=== PATIENT | female | born 1940 | race Caucasian/White ===

== ENCOUNTER 2019-03-29 10:02 | Emergency (ER) | payer MEDICARE, MEDICAID ==
[~2019-03-29] VITALS: Ht 157.5 cm; Wt 66.4 kg
[2019-03-29 10:03] VITALS: Ht 157.5 cm; Wt 66.4 kg
[2019-03-29] MEDS ORDERED: RANITIDINE HCL150 M1 PO (10:07)
[2019-03-29] MEDS ORDERED: ULTRAM50 MG PO (10:08)
[2019-03-29] MEDS ORDERED: ASPIRIN81 MG PO (10:08)
[2019-03-29] MEDS ORDERED: ELAVIL25 MG PO (10:08)
[2019-03-29] MEDS ORDERED: ZOCOR40 MG PO (10:09)
[2019-03-29] MEDS ORDERED: KEFLEX250 MG PO (10:09)
[2019-03-29] MEDS ORDERED: LISINOPRIL10 MG PO (10:09)
[2019-03-29] MEDS ORDERED: LYRICA75 MG PO (10:10)
[2019-03-29 11:26] LABS: BASOPHILS 0.2 % (0-2); EOSINOPHILS 0 % (0-7); HEMOGLOBIN 12.6 g/dL (12-16); IMMATURE GRANULOCYTES 0.2 % (0-5); LYMPHOCYTES 9.5 % (15-50); MCH 28.6 pg (26.0-34.0); MCHC 33.2 g/dL (31.0-37.0); MCV 86.4 fL (80.0-100.0); MEAN PLATELET VOLUME 10.9 fL (7.4-10.4); MONOCYTES 8.7 % (2-11); NEUTROPHILS 81.4 % (40-80); PLATELET COUNT 185 10x3/uL (130-400); RDW 13.3 % (11.5-14.5); WBC 5.3 10x3/uL (4.8-10.8)
[2019-03-29 11:51] LABS: ALBUMIN 3.7 g/dL (3.4-5.0); ANION GAP 11.3 mmol/L (8-16); BILIRUBIN - TOTAL 0.36 mg/dL (0.2-1.3); CALCIUM 9.2 mg/dL (8.5-10.1); CARBON DIOXIDE 29.7 mmol/L (21.0-32.0); CREATININE - SERUM 1.1 mg/dL (0.6-1.3); PROTEIN - SERUM 7.5 g/dL (6.4-8.2)
[2019-03-29] MEDS ORDERED: ROBAXIN500 MG PO (12:26)
[2019-03-29 12:50] VITALS: BP 105/62
== END 2019-03-29 12:50 | disposition home or self-care (01) ==
LOC: D.ER 10:02
PROVIDERS: Family Medicine
DX: S20.211A Contusion of right front wall of thorax, initial encounter (principal); W18.09XA Striking against other object with subsequent fall, initial encounter; Y93.89 Activity, other specified; Y92.019 Unspecified place in single-family (private) house as the place of occurrence of the external cause; S29.012A Strain of muscle and tendon of back wall of thorax, initial encounter

== ENCOUNTER 2019-04-07 16:19 | Emergency (ER) | payer MEDICARE, MEDICAID ==
[~2019-04-07] VITALS: Ht 157.5 cm; Wt 63.6 kg
[~2019-04-07 16:19] MED LIST: ASPIRIN81 MG PO; ELAVIL25 MG PO; KEFLEX250 MG PO; LISINOPRIL10 MG PO; LYRICA75 MG PO; RANITIDINE HCL150 M1 PO; ROBAXIN500 MG PO; ULTRAM50 MG PO; ZOCOR40 MG PO
[2019-04-07 16:28] VITALS: Ht 157.5 cm; Wt 63.6 kg
[2019-04-07 17:18] LABS: BASOPHILS 0.2 % (0-2); EOSINOPHILS 0.2 % (0-7); HEMATOCRIT 39.5 % (36.0-48.0); HEMOGLOBIN 12.8 g/dL (12-16); IMMATURE GRANULOCYTES 0.2 % (0-5); LYMPHOCYTES 9.2 % (15-50); MCH 28.1 pg (26.0-34.0); MCHC 32.4 g/dL (31.0-37.0); MCV 86.6 fL (80.0-100.0); MEAN PLATELET VOLUME 11.1 fL (7.4-10.4); MONOCYTES 5.8 % (2-11); NEUTROPHILS 84.4 % (40-80); RBC 4.56 10x6/uL (4.00-5.40); RDW 13.2 % (11.5-14.5); WBC 5.7 10x3/uL (4.8-10.8)
[2019-04-07 17:20] LABS: PLATELET COUNT 239 10x3/uL (130-400)
[2019-04-07 17:39] LABS: ALBUMIN 3.5 g/dL (3.4-5.0); ANION GAP 8.6 mmol/L (8-16); BILIRUBIN - TOTAL 0.29 mg/dL (0.2-1.3); CALCIUM 9.5 mg/dL (8.5-10.1); CARBON DIOXIDE 30.8 mmol/L (21.0-32.0); POTASSIUM - SERUM 4.4 mmol/L (3.5-5.1); PROTEIN - SERUM 7.2 g/dL (6.4-8.2)
[2019-04-07 17:44] LABS: APPEARANCE CLEAR (CLEAR); BILIRUBIN NEGATIVE (NEGATIVE); COLOR STRAW (YELLOW); GLUCOSE NEGATIVE (NEGATIVE); KETONE NEGATIVE (NEGATIVE); NITRITE NEGATIVE (NEGATIVE); PROTEIN NEGATIVE (NEGATIVE); UROBILINOGEN NORMAL (NORMAL)
[2019-04-07] MEDS ORDERED: MOVANTIK25 MG PO (20:41)
[2019-04-07 21:00] VITALS: BP 112/65
== END 2019-04-07 21:00 | disposition home or self-care (01) ==
LOC: D.ER 16:19
PROVIDERS: Emergency Medicine
DX: K59.00 Constipation, unspecified (principal)